=== PATIENT | female | born 1965 | race African-American/Black ===

== ENCOUNTER 2016-07-16 08:04 | Day surgery (SDC) | payer MEDICARE, BC, OTHER ==
[2016-07-13 17:30] LABS: HEMATOCRIT 41.8 % (36.0-48.0); HEMOGLOBIN 14.5 g/dL (12.0-16.0)
[2016-07-13 17:40] LABS: BUN (BLOOD UREA NITROGEN) 21 MG/DL (6-23); CALCIUM, SERUM 9.8 MG/DL (8.5-10.4); CHLORIDE, SERUM 102 MMOL/L (96-112); CO2 (CARBON DIOXIDE) 25 MMOL/L (24-34); CREATININE 1.62 MG/DL (0.55-1.02); GFR AFRICAN AMERICAN 42 ML/MIN (>=60); GFR NON AFRICAN AMERICAN 37 ML/MIN (>=60); GLUCOSE, SERUM 136 MG/DL (60-99); POTASSIUM, SERUM 3.8 MMOL/L (3.5-5.3); SODIUM, SERUM 138 MMOL/L (135-148)
--- NOTE | ~2016-07-16 | OP ---
Record Of Operation [facility] [address] [place]. [address] NAME: GABRIEL GAMBOA : 65 STATUS : [facility]#: [id number] AGE: 50 ADM/REG DATE : 07/16/16 MR#: [id number] REPORT SERV DATE: 07/17/16 DICTATED BY: CHITRA MONTANO DATE: 07/16/16 REPORT STATUS : Draft TRANSCRIBED BY: NAVIN DATE: 07/16/16 DATE OF PROCEDURE: PREPROCEDURE DIAGNOSIS: Possibly T2 rectal cancer. POSTPROCEDURE DIAGNOSIS: Rectal polyp at 5 cm of right posterior quadrant. PROCEDURE: Proctoscopy and transanal excision. DESCRIPTION OF PROCEDURE: The patient was taken to the operating room, induced under general anesthesia, placed into the right lateral position, prepped and draped in the usual sterile fashion. A pudendal nerve block was placed with a total of 10 mL of TAP block solution. The anus was dilated with a small, then medium lighted Hill-Gannon retractor. The only visible abnormality was at 5 cm at the right posterior midline, which was a mobile mass, which was amputated at the base leaving a 1 cm margin. This was passed off the table and sent to Pathology, labeled as rectal polyp. Gannon operating anoscopes were used in order to visualize up to 10 cm. No other lesions were noted. No other mucosal abnormalities. At this point, Dr. Booker switched to proctoscopy up to 25 cm. No other abnormalities were noted. So, based on this, only the excision with a 1 cm margin was performed. The excision was performed with cautery. She was cleaned and dried followed by two 4x4s, peripad, and mesh panties. She tolerated the procedure well. WON/NAVIN Chitra Montano M.D. / [id number] CC: Juany Del Valle M.D. GEORGE SAMUEL, MD
[~2016-07-16 08:04] MED LIST: BUM2 PO; CAT1 PO; CLARIT10 PO; COLCH6 PO; COZ25 PO; EMETROL PO; ERYTHROMYCIN O3.5 G1 OPH; K-TABS10 MEQ PO; LOP50 PO; MIRALAX POWDER1 PKT PO; MOMUD PO; RISP0.5 PO; SPIRO50 PO; T PO; TEARS PURE OPH
== END 2016-07-16 13:18 | disposition home or self-care (01) ==
LOC: SDC 08:04
PROVIDERS: Surgery
PROC: 0DBP8ZZ Excision of Rectum, Via Natural or Artificial Opening Endoscopic (ICD-10-PCS; principal; 2016-07-16 09:15)
DX: D12.8 Benign neoplasm of rectum (principal); I10 Essential (primary) hypertension; K21.9 Gastro-esophageal reflux disease without esophagitis; E78.00 Pure hypercholesterolemia, unspecified; E11.9 Type 2 diabetes mellitus without complications; M10.9 Gout, unspecified; Z88.8 Allergy status to other drugs, medicaments and biological substances
CPT/HCPCS: 80048; 82962; 85014; 85018; 88307; 93005; A9270-GY; J0690; J2250; J2370; J2405; J2710; J2795; J3010